=== PATIENT | male | born 1985 | race Caucasian/White ===

== ENCOUNTER 2016-10-30 07:50 | Emergency (ER) | payer SELFPAY ==
[~2016-10-30] VITALS: Ht 188 cm; Wt 102.1 kg
[2016-10-30 07:56] VITALS: BP 115/85
[2016-10-30] MEDS ORDERED: KETOROLAC TROMETH 60MG/2ML VIAL IM ONE (08:45)
== END 2016-10-30 09:10 | disposition home or self-care (01) ==
LOC: ER 07:50
DX: S93.401A Sprain of unspecified ligament of right ankle, initial encounter (principal); M93.271 Osteochondritis dissecans, right ankle and joints of right foot; F17.210 Nicotine dependence, cigarettes, uncomplicated; F11.20 Opioid dependence, uncomplicated; X50.9XXA Other and unspecified overexertion or strenuous movements or postures, initial encounter; Y93.89 Activity, other specified; Y99.8 Other external cause status; Y92.89 Other specified places as the place of occurrence of the external cause
CPT/HCPCS: 73600; 96372; 99284; J1885